=== PATIENT | female | born 1980 ===

== ENCOUNTER 2023-05-30 14:40 | Outpatient (AMB) | payer OTHER, SELFPAY ==
--- NOTE | 2023-05-30 14:55 | AM.OFFWIN_ITS ---
Intake Vital Signs 05/30/23 14:56 Height 5 ft 3 in Weight 181 lb BMI 32.1 BP 118/76 Blood Pressure Location Lt brachial Position Sitting Pulse 80 Pulse Source Pulse Oximeter Temp 98.2 F Temp Source Oral Pulse Oximetry (%) 99 Intake Visit Reasons: Pain back of head/down neck left side(Lobby) Intake Note: pt is here for c/p pain in back of head and goes down neck for 2 months Patient Tobacco Use Status: Never used Tobacco Accompanied by: Spouse Allergies pencilin Allergy (Mild, Uncoded 05/30/23 14:58) Rash Do you need a note to return to daycare/school/sports/work: Yes HPI HPI Comments History of Present Illness Details 42 y/o female patient who presents to [facility] with c/o headaches located in Occipital region. Reports that symptoms started 3 months ago. Denies vision changes. Denies Dizziness, nausea or vomiting. PFSH Social History Patient Tobacco Use Status: Never used Tobacco Review of Systems Const All systems reviewed & are unremarkable except as noted in HPI and below Physical Exam Vital Signs: Last Vital Signs Temp 98.2 F 05/30/23 14:56 Pulse 80 05/30/23 14:56 BP 118/76 05/30/23 14:56 Pulse Ox 99 05/30/23 14:56 BMI result Body Mass Index 32.1 Const General: no acute distress; No comfortable Nutritional Appearance: overweight Orientation/consciousness: patient oriented x3 HEENT Head: Yes normal to inspection, Yes normocephalic, No Miranda's sign and Yes scalp tenderness (Occipital region) Ears: external ears normal and TM's normal bilaterally Face and sinus: Yes normal facial exam Eyes Pupils: Equal, round and reactive pupils present EOM: EOMs intact bilaterally Neuro General: patient oriented x3, gait normal and moves all extremities Cranial nerves: Yes Equal, round and reactive pupils present Psych Speech and movement: Normal speech and movement present Assessment & Plan Assessment & Plan (1) Arthralgia, cervical spine: Code(s): M54.2 - Cervicalgia Plan: - IceHot - Take medications as prescribed. - Rest in Dark quite room - Pt to Report N/V or blurry vision. Medications: New acetaminophen 1,000 mg (2 x 500 mg) PO Q6H PRN 30 caps 0RF pain (scale score 7- 10) M54.2 - Cervicalgia methocarbamol 750 mg PO Q8H 20 tabs 0RF Muscle Spasm M54.2 - Cervicalgia ibuprofen 600 mg PO Q6H PRN 20 tabs 0RF pain M54.2 - Cervicalgia Coding Level of Care Code New Pt Level 3 (76141) Diagnoses Arthralgia, cervical spine M54.2 Time Spent (min) 15
[2023-05-30 14:56] VITALS: BP 118/76; PULSE 80; TEMP 36.8; O2SAT 99; BMI 32.1
== END 2023-05-30 15:57 | disposition home or self-care (01) ==
PROVIDERS: PCP Internal Medicine; Visit Provider Nurse Practitioner Family
DX: M54.2 Cervicalgia (principal)
CPT/HCPCS: 99203

== ENCOUNTER 2024-01-21 09:57 | Outpatient (AMB) | payer OTHER, SELFPAY ==
[2024-01-21 10:54] VITALS: BP 110/80; PULSE 88; O2SAT 99; BMI 33.5
--- NOTE | 2024-01-21 10:54 | A.OFFPC_ITS ---
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 Intake Note: Pt is here today as a New Patient to est care/ Hx of asthma and request inhaler Allergies pencilin Allergy (Mild, Uncoded 01/21/24 11:19) Rash Medication List - Last Reconciled 01/21/24 by Rosa Elena Tovar MD acetaminophen 1,000 mg (2 x 500 mg) PO Q6H PRN fluticasone propionate 250 mcg/actuation 1 inh inhalation BID ibuprofen 600 mg PO Q6H PRN Tobacco use date assessed: 01/21/24 Dental Screening Dental Screen Date: 01/21/24 Did you have a dental visit in the last 12 months?: No Did you have a dental problem in the last 6 months where you did not have access to dental care?: No Was dental information given to patient?: Patient has dentist 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 - She has Bronchial asthma, was initia lly managed with an inhaler for two years, which she found helpful despite its expiration. Against episodes of bronchospasm with exertion and exposure to certain smells, cold air, and intense exertion. - The patient was previously diagnosed w ith uterine fibroid and low libido, for which she was seen at the [facility]. Denies any abdominal pain cramping irregular menstrual cycles - found to have a mass in left breast on ultrasound, also seen on mammogram done in at [facility]. Has been advised to have biopsy of lesion but patient declined. Patient however agreeable to get a repeat ultrasound done 6 months, already scheduled for April 2024 at [facility] by her OBGYN [facility] Medical History (Updated 01/27/24 @ 19:23 by Rosa Elena Tovar MD) Uterine fibroid Abnormal finding on breast imaging Hereditary hemorrhagic telangiectasia Vaccine refused by patient Mild intermittent asthma Surgical History (Updated 01/27/24 @ 19:06 by Rosa Elena Tovar MD) History of tubal ligation Family History (Updated 01/27/24 @ 19:09 by Rosa Elena Tovar MD) Mother HTN (hypertension) Skin cancer Father HTN (hypertension) Diabetes mellitus Brother Testicular cancer Social History Housing: House Patient Tobacco Use Status: Never used Tobacco e-Cigarette/Vaping Use: Never Used service: No Current occupational status: employed Cognitive needs: No Hearing needs: No Vision needs: No Female Reproductive History Menstrual Total pregnancies: 2 Date of Mammogram: 11/01/23 (Done at showed negative finding in right breast, 1.5 cm oval mass upper outer posterior aspect of left breast) Questionnaire Thrive Questionnaire Date Thrive assessed: 01/21/24 I am a: Patient What is your living situation today?: I have a steady place to live Within the past 12 months, did the food you bought not last and you didn't have the money to get more?: I choose not to answer this question Within the past 12 months, did you worry whether your food would run out before you got money to buy more?: I choose not to answer this question Do you have trouble paying for medicines?: No Do you have trouble getting transportation to medical appointments?: No Do you have trouble paying your heating and electricity bill?: No Do you have trouble taking care of your child, family member or friend?: No Do you have trouble with day-to-day activities such as bathing, preparing meals, shopping, managing finances, etc.?: No Are you currently unemployed and looking for a job?: I choose not to answer this question Are you interested in more education?: I choose not to answer this question Please select the resources that you would like help with: None Currently or been in a relationship where the following occur: I choose not to answer THRIVE Score: 0 AUDIT C Alcohol Use Questionnaire (AUDIT-C) 1. How often do you have a drink containing alcohol?: Never Total Score: 0 NINA-7 AMB Questionnaire NINA-7 Date NINA - 7 assessed: 01/21/24 Feeling nervous, anxious, or on edge: 0 = Not at all Not being able to stop or control worryin = Not at all Worrying too much about different things: 0 = Not at all Trouble relaxin = Not at all Being so restless that it is hard to sit still: 0 = Not at all Becoming easily annoyed or irritable: 3 = Nearly every day Feeling afraid as if something awful might happen: 0 = Not at all Total NINA-7 score (0-4 normal; 5-9 mild; 10-14 moderate; 15-21 severe): 3 Source: Developed by Drs. Amanuel Flynn, Nathaly Reyna, Johnnie Nielsen and colleagues, with an educational nathan from [employer]. Review of Systems Const Denies body aches, Denies fatigue, Denies fever(s) and Denies headache(s) Eyes Denies change in vision ENT Denies dizziness, Denies headache(s), Denies nasal congestion, Denies nasal discharge and Denies sore throat Card Denies chest pain, Denies lightheadedness and Denies palpitations Resp Details: As per HPI GI Denies abdominal pain, Denies change in bowel habits and Denies heartburn Denies hematuria, Denies urinary frequency, Denies nipple discharge, Denies dysuria and Denies urinary urgency Skin/Breast Denies breast swelling, Denies breast skin changes, Denies breast pain, Denies breast mass, Denies lesions, Denies nipple discharge and Denies rash Neuro Denies dizziness and Denies headache(s) Endo Denies fatigue, Denies polydipsia, Denies polyuria and Denies palpitations Liam/Lymph Denies easy bruising Aller/Immun Denies seasonal rhinorrhea Physical exam (Primary Care) Vital Signs: Last Vital Signs Pulse 88 01/21/24 10:54 BP 110/80 01/21/24 10:54 Pulse Ox 99 01/21/24 10:54 Oxygen Delivery Method Room Air 01/21/24 10:54 BMI result Body Mass Index 33.5 Tobacco/Smoking Status: Tobacco use Status Tobacco use date assessed 01/21/24 01/21/24 10:58 Patient Tobacco Use Status Never used Tobacco 01/21/24 10:54 e-Cigarette/Vaping Use Never Used 01/21/24 10:58 Thrive Assessment: Date of Thrive Assessment Date Thrive assessed 01/21/24 01/21/24 10:58 Currently or been in a relationship where the following occur: I choose not to a nswer Const General: comfortable, no acute distress and alert Orientation/consciousness: patient oriented x3 HENMT Ears: external ears normal, TM's normal bilaterally and EAC's normal General nose exam: Normal external nose present and No nasal discharge present Mouth: Normal oral and palatal mucosa present, oropharynx normal and moist mucous membranes Eyes General: appearance normal, both eyes and all related structures Conjunctivae: conjunctivae normal Sclerae: sclerae normal Pupils: Equal, round and reactive pupils present EOM: EOMs intact bilaterally Neck Neck: Yes full ROM, Yes no lymphadenopathy and Yes supple Resp Effort & Inspection: normal respiratory effort and able to speak in complete sentences Auscultation: clear to auscultation bilaterally Cardio Rate: regular rate Rhythm: regular rhythm Heart sounds: S1 normal heart sound present and S2 normal heart sound present GI Palpation (GI): Soft to palpation, nontender and no masses Auscultation: normal bowel sounds Back/Spine/Pelvis Back: No back tenderness Skin General skin exam: no rashes or lesions noted Neuro General: patient oriented x3, gait normal, tone normal, moves all extremities, Normal light touch and pain sensation and no focal motor deficits Cranial nerves: Yes CN's II-XII intact bilaterally and Yes Equal, round and reactive pupils present Cognition (Neuro): normal cognition Extrem General: Yes full ROM, Yes no joint enlargement, Yes no clubbing, cyanosis or edema and Yes no calf tenderness Psych Appearance: grossly normal and well kempt Mental Status: mental status grossly normal Speech and movement: Normal speech and movement present Affect: normal affect Attitude: cooperative Thought process: Normal thought process present Thought content: Normal thought content present, suicidality and no homicidality Coding Level of Care Code New Pt Level 4 (88646) Diagnoses Mild intermittent asthma without complication J45.20 Asthma complication type: uncomplicated Vaccine refused by patient Z28.20 Mass of left breast on mammogram N63.20 Low libido R68.82 Assessment & Plan Assessment & Plan (1) Mild intermittent asthma: Code(s): J45.20 - Mild intermittent asthma, uncomplicated Category: Medical Qualifiers: Asthma complication type: uncomplicated Qualified Code(s): J45.20 - Mild intermittent asthma, uncomplicated Plan: Prescription sent for fluticasone propionate-salmeterol 113-14 mcg per actuation, 1 inhalation every 12 hours. Advised to rinse mouth after use, patient instructed on proper use of inhaler. Continue use of albuterol inhaler 2 puffs every 6 hours as needed for episodes of wheezing and bronchospasm. Recommended to get flu vaccine and pneumococcal vaccine but patient refused (2) Vaccine refused by patient: Code(s): Z28.20 - Immunization not carried out because of patient decision for unspecified reason Category: Medical Plan: Patient does not want to get any vaccinations (3) Mass of left breast on mammogram: Code(s): N63.20 - Unspecified lump in the left breast, unspecified quadrant Plan: Currently being followed at [facility], declining biopsy of left breast mass, but agrees to have a repeat follow-up ultrasound done, already scheduled at [facility] in 04/2024 (4) Low libido: Comment: Currently being seen at [facility] by Jenae Brooke , last seen 11 02/01/2024 Code(s): R68.82 - Decreased libido Category: Medical Plan: Followed at [facility] Medications: New fluticasone propion-salmeterol 113-14 mcg/actuation 1 inh inhalation Q12H 1 ea 5RF J45.20 - Mild intermittent asthma, uncomplicated albuterol sulfate 90 mcg/actuation 2 puffs inhalation Q6H PRN 8.5 grams 3RF shortness of breath or wheezing J45.20 - Mild intermittent asthma, uncomplicated
== END 2024-01-21 11:44 | disposition home or self-care (01) ==
PROVIDERS: PCP Internal Medicine; Visit Provider Internal Medicine
DX: J45.20 Mild intermittent asthma, uncomplicated (principal); Z28.20 Immunization not carried out because of patient decision for unspecified reason; N63.20 Unspecified lump in the left breast, unspecified quadrant; R68.82 Decreased libido

== ENCOUNTER → 2024-01-21 09:57 | Outpatient (BNVA) | payer OTHER, SELFPAY | PROVIDERS: PCP Internal Medicine; Visit Provider Internal Medicine | DX: J45.20 Mild intermittent asthma, uncomplicated (principal); N63.20 Unspecified lump in the left breast, unspecified quadrant | CPT/HCPCS: 96127; 99202 ==

== ENCOUNTER 2024-10-07 11:57 | Outpatient (AMB) | payer OTHER, SELFPAY ==
[2024-10-07 12:08] VITALS: BP 102/62; PULSE 83; RESP 16; TEMP 37.4; O2SAT 98; BMI 31.7
--- NOTE | 2024-10-07 12:08 | MHC.PC.OV ---
Vital Signs 10/07/24 12:08 Height 5 ft 3 in Weight 179 lb BMI 31.7 BP 102/62 Blood Pressure Location Rt brachial Position Sitting Respiration 16 Pulse 83 Pulse Source Pulse Oximeter Temp 99.3 F Temp Source Oral Pulse Oximetry (%) 98 Oxygen Delivery Method Room Air Intake Visit Reasons: PE Intake Note: Pt is here today for her PE House Detective Required: Yes House Detective Name: Murphy ID #[id number] Is last menstrual period known: Yes Last menstrual period: 09/15/24 Allergies pencilin Allergy (Mild, Uncoded 10/07/24 12:20) Rash Medication List - Last Reconciled 10/07/24 by Rosa Elena Tovar MD Advair HFA 115-21 mcg/actuation (fluticasone propion-salmeterol) 2 puffs inhalation Q12H NS albuterol sulfate 90 mcg/actuation 2 puffs inhalation Q6H PRN ibuprofen 600 mg PO Q6H PRN [magnesium PO] [selenium PO] [vitamin d3 PO] [vitamin e PO] [zinc PO] Tobacco use date assessed: 10/07/24 Dental Screening Dental Screen Date: 10/07/24 Did you have a dental visit in the last 12 months?: No Did you have a dental problem in the last 6 months where you did not have access to dental care?: No Was dental information given to patient?: Patient has dentist HPI PE HPI Details 43-year-old lady here today for physical exam. She has mild intermittent asthma, uses Advair and albuterol as needed for episodes of bronchospasm and wheezing, which she rarely uses. She goes to [facility] for her routine Pap and pelvic exam, diagnosed to have uterine fibroids on ultrasound done last year at [facility]. Has regular menstrual cycle, with last menstrual period 09/12/2024, periods usually last 2-3 days with no heavy menstrual bleeding, and no menstrual cramps Up-to-date with her screening mammogram done at [facility] 11/01/2023 which showed no mammographic or sonographic evidence of malignancy in right breast but there is a mildly suspicious mass in the at 2 o'clock position left breast, for which ultrasound was done on 05/09/2023, which showed lobulated soft mass at 02:00 position in her left breast , and recommended to have an ultrasound-guided core needle biopsy. Patient states that she was already informed with the finding by her OBGYN but does not want to get ultrasound-guided biopsy done ordered to get any further testing. As mild intermittent asthma currently on Advair inhalation taken twice a day, rarely needing to use her albuterol inhaler. Patient does not want to get any vaccines. Patient she states that she has been feeling well, with no complaints at present time [facility] Medical History (Updated 10/07/24 @ 12:58 by Rosa Elena Tovar MD) Mass of left breast on mammogram Uterine fibroid Abnormal finding on breast imaging Hereditary hemorrhagic telangiectasia Vaccine refused by patient Mild intermittent asthma Surgical History (Updated 01/27/24 @ 19:06 by Rosa Elena Tovar MD) History of tubal ligation Family History (Updated 01/27/24 @ 19:09 by Rosa Elena Tovar MD) Mother HTN (hypertension) Skin cancer Father HTN (hypertension) Diabetes mellitus Brother Testicular cancer Social History Housing: House Patient Tobacco Use Status: Never used Tobacco e-Cigarette/Vaping Use: Never Used service: No Current occupational status: employed Cognitive needs: No Hearing needs: No Vision needs: No Female Reproductive History Menstrual Duration of menses: <3 days Date of last menstrual period: 09/15/24 control method: none Questionnaire PHQ-9 Over the last 2 weeks, how often have you been bothered by any of the following problems? 1. Little interest or pleasure in doing things: not at all 2. Feeling down, depressed, or hopeless: not at all 3. Trouble falling or staying asleep, or sleeping too much: not at all 4. Feeling tired or having little energy: several days 5. Poor appetite or overeating: not at all 6. Feeling bad about yourself - or that you are a failure or have let yourself or your family down: not at all 7. Trouble concentrating on things, such as reading the newspaper or watching television: not at all 8. Moving or speaking so slowly that other people could have noticed. Or the opposite - being so fidgety or restless that you have been moving around a lot more than usual: not at all 9. Thoughts that you would be better off or of hurting yourself in some way: not at all Total score: 1 Depression Screening Interpretation: Negative Depression Screening Done: Yes 35707 - PHQ-9 Billing: Yes Source: Developed by Drs. Amanuel Flynn, Nathaly Reyna, Johnnie Nielsen and colleagues, with an educational nathan from [employer]. Thrive Questionnaire Date Thrive assessed: 10/07/24 I am a: Patient What is your living situation today?: I have a steady place to live Within the past 12 months, did the food you bought not last and you didn't have the money to get more?: I choose not to answer this question Within the past 12 months, did you worry whether your food would run out before you got money to buy more?: I choose not to answer this question Do you have trouble paying for medicines?: I choose not to answer this question Do you have trouble getting transportation to medical appointments?: I choose not to answer this question Do you have trouble paying your heating and electricity bill?: I choose not to answer this question Do you have trouble taking care of your child, family member or friend?: I choose not to answer this question Do you have trouble with day-to-day activities such as bathing, preparing meals, shopping, managing finances, etc.?: I choose not to answer this question Are you currently unemployed and looking for a job?: I choose not to answer this question Are you interested in more education?: I choose not to answer this question Please select the resources that you would like help with: None Currently or been in a relationship where the following occur: I choose not to answer THRIVE Score: 0 AUDIT C Alcohol Use Questionnaire (AUDIT-C) 1. How often do you have a drink containing alcohol?: Never Total Score: 0 Score Reviewed/Action Taken: Yes NINA-7 AMB Questionnaire NINA-7 Date NINA - 7 assessed: 10/07/24 Feeling nervous, anxious, or on edge: 0 = Not at all Not being able to stop or control worryin = Not at all Worrying too much about different things: 0 = Not at all Trouble relaxin = Not at all Being so restless that it is hard to sit still: 0 = Not at all Becoming easily annoyed or irritable: 0 = Not at all Feeling afraid as if something awful might happen: 0 = Not at all Total NINA-7 score (0-4 normal; 5-9 mild; 10-14 moderate; 15-21 severe): 0 Source: Developed by Drs. Amanuel Flynn, Nathaly Reyna, Johnnie Nielsen and colleagues, with an educational nathan from [employer]. NINA-7 Assessment Billing NINA-7 Assessment Tool: NINA-7 Assessment 36937 Review of Systems Const Denies body aches, Denies fatigue, Denies fever(s) and Denies headache(s) Eyes Details: Has appointment to see [facility] January 2025 for her routine eye exam Denies change in vision ENT Denies dizziness, Denies headache(s), Denies nasal congestion, Denies nasal discharge and Denies sore throat Card Denies chest pain, Denies lightheadedness and Denies palpitations Resp Reports no additional complaints GI Denies abdominal pain, Denies change in bowel habits and Denies heartburn Denies abnormal menses, Denies hematuria, Denies urinary frequency, Denies nipple discharge, Denies dysuria and Denies urinary urgency Musc Reports no additional complaints Skin/Breast Denies breast swelling, Denies breast skin changes, Denies breast pain, Denies breast mass, Denies lesions, Denies nipple discharge and Denies rash Neuro Denies dizziness and Denies headache(s) Psych Reports no additional complaints Endo Denies fatigue, Denies polydipsia, Denies polyuria and Denies palpitations Liam/Lymph Denies easy bleeding and Denies easy bruising Aller/Immun Denies seasonal rhinorrhea Physical exam (Primary Care) Vital Signs: Last Vital Signs Temp 99.3 F 10/07/24 12:08 Pulse 83 10/07/24 12:08 Resp 16 10/07/24 12:08 BP 102/62 10/07/24 12:08 Pulse Ox 98 10/07/24 12:08 Oxygen Delivery Method Room Air 10/07/24 12:08 BMI result Body Mass Index 31.7 Tobacco/Smoking Status: Tobacco use Status Tobacco use date assessed 10/07/24 10/07/24 12:15 Patient Tobacco Use Status Never used Tobacco 10/07/24 12:15 e-Cigarette/Vaping Use Never Used 10/07/24 12:15 PHQ-9: PHQ-9 Score PHQ-9: Total score 1 10/07/24 12:23 Depression Screening Interpretation: Negative Thrive Assessment: Date of Thrive Assessment Date Thrive assessed 10/07/24 10/07/24 12:15 Currently or been in a relationship where the following occur: I choose not to answer Advance Care Planning discussion: Completed/Scanned Date of discussion: 10/07/24 Who was present: Patient Forms completed: Health Care Proxy Time spent: 16-45 minutes Actual minutes spent: 2 Const General: no acute distress and alert Orientation/consciousness: patient oriented x3 HENMT Ears: external ears normal, TM's normal bilaterally and EAC's normal General nose exam: Normal external nose present and No nasal discharge present Mouth: Normal oral and palatal mucosa present, oropharynx normal and moist mucous membranes Eyes General: appearance normal, both eyes and all related structures Conjunctivae: conjunctivae normal Sclerae: sclerae normal Pupils: Equal, round and reactive pupils present EOM: EOMs intact bilaterally Neck Neck: Yes full ROM, Yes no lymphadenopathy and Yes supple Resp Effort & Inspection: normal respiratory effort and able to speak in complete sentences Auscultation: clear to auscultation bilaterally Cardio Rate: regular rate Rhythm: regular rhythm Heart sounds: S1 normal heart sound present and S2 normal heart sound present GI Palpation (GI): Soft to palpation, nontender and no masses Auscultation: normal bowel sounds General: Yes deferred (Goes to [facility] with referred, up-to-date with her cervical cancer screeni) Back/Spine/Pelvis Back: No back tenderness Skin General skin exam: no rashes or lesions noted Neuro General: patient oriented x3, gait normal, tone normal, moves all extremities, Normal light touch and pain sensation and no focal motor deficits Cranial nerves: Yes Equal, round and reactive pupils present Cognition (Neuro): normal cognition Extrem General: Yes full ROM, Yes no joint enlargement, Yes no clubbing, cyanosis or edema and Yes no calf tenderness Psych Appearance: grossly normal and well kempt Mental Status: mental status grossly normal Speech and movement: Normal speech and movement present Affect: normal affect Coding Level of Care Code Est Pt Prev Care 40-64y(38410) Diagnoses Annual visit for general adult medical examination with abnormal findings Z00.01 Mild intermittent asthma without complication J45.20 Asthma complication type: uncomplicated Vaccine refused by patient Z28.20 Hereditary hemorrhagic telangiectasia I78.0 Uterine fibroid D25.9 Advance directive discussed with patient Z71.89 Mass of left breast on mammogram N63.20 Additional Codes NINA-7 Assessment Billing - NINA-7 Assessment Tool: NINA-7 Assessment 53914 ([id number]) PHQ-9 - 40790 - PHQ-9 Billing: Yes ([id number]) Vital Signs *Quality* - Advance Care Planning discussion: Completed/Scanned ([id number]) Vital Signs *Quality* - Time spent: 16-45 minutes ([id number]) Assessment & Plan Assessment & Plan (1) Annual visit for general adult medical examination with abnormal findings: Code(s): Z00.01 - Encounter for general adult medical examination with abnormal findings Plan: Will check appropriate labs. Up-to-date with her dental prophylaxis every 6 months and regular eye exams, at least every 2 years has an appointment already scheduled with [facility] in January 2025. Take adequate calcium in diet and vitamin-D 3 at 2000 IU per cap once a day, in addition to weight-bearing exercises to help maintain good muscle tone and weight control. Up-to-date with her mammogram, done last year which showed presence of mildly suspicious mass at 2 o'clock position left breast, breast ultrasound was done April 2024 which showed solid lobulated mass at 2 o'clock position left breast with recommendation to do ultrasound-guided core needle biopsy, but patient refusing to have procedure or further testing . Up-to-date with her cervical cancer screening, done at [facility] with referral, with Pap smear done 10/17/2023 showing negative findings. Patient declines getting any vaccines (2) Mild intermittent asthma: Code(s): J45.20 - Mild intermittent asthma, uncomplicated Category: Medical Qualifiers: Asthma complication type: uncomplicated Qualified Code(s): J45.20 - Mild intermittent asthma, uncomplicated Plan: Asthma symptoms stable and controlled on Advair, rarely needing to use her albuterol inhaler (3) Vaccine refused by patient: Code(s): Z28.20 - Immunization not carried out because of patient decision for unspecified reason Category: Medical Plan: Patient does not want to get any vaccines (4) Hereditary hemorrhagic telangiectasia: Comment: Diagnosed 10/31/2007 Code(s): I78.0 - Hereditary hemorrhagic telangiectasia Category: Medical Plan: Denies any abnormal bleeding or bruising (5) Uterine fibroid: Comment: 11/09/2023 compared with 11/15/2017 transabdominal/transvaginal pelvic ultrasound, which showed 2.6 cm uterine fibroid posteriorly with normal uterus and endometrium, normal ovaries Code(s): D25.9 - Leiomyoma of uterus, unspecified Category: Medical Plan: Denies any abnormal menstrual bleeding, has regular periods lasting 3 days with no accompanying abdominal cramping. Patient already being followed by OBGYN at [facility] (6) Advance directive discussed with patient: Code(s): Z71.89 - Other specified counseling Plan: Initiated the conversation about Advanced Directives. Advanced Directives help patients prepare for current and future decisions about their medical treatment and place of care. Discussed with patient that it is a process where a patients current condition and prognosis are reviewed, their wishes for information regarding their illness are elicited, and likely medical dilemmas are presented and options discussed. Healthcare proxy form completed today. The form can be amended as needed, reviewed yearly and make changes as needed (7) Mass of left breast on mammogram: Comment: Already notified by her OBGYN about report or further mammogram and breast ultrasound but patient does not want to get ultrasound-guided core biopsy of left breast, refuses further testing Code(s): N63.20 - Unspecified lump in the left breast, unspecified quadrant Category: Medical Plan: Already notified by her OBGYN about report or further mammogram and breast ultrasound but patient does not want to get ultrasound-guided core biopsy of left breast, refuses further testing Orders: Orders Glucose Fasting Today D25.9 - Leiomyoma of uterus, unspecified, I78.0 - Hereditary hemorrhagic telangiectasia, J45.20 - Mild intermittent asthma, uncomplicated, Z00.01 - Encounter for general adult medical examination with abnormal findings, Z13.1 - Encounter for screening for diabetes mellitus, Z13.220 - Encounter for screening for lipoid disorders, Z28.20 - Immunization not carried out because of patient decision for unspecified reason, Z71.89 - Other specified counseling Vitamin D 25-OH Total Today D25.9 - Leiomyoma of uterus, unspecified, I78.0 - Hereditary hemorrhagic telangiectasia, J45.20 - Mild intermittent asthma, uncomplicated, Z00.01 - Encounter for general adult medical examination with abnormal findings, Z13.1 - Encounter for screening for diabetes mellitus, Z13.220 - Encounter for screening for lipoid disorders, Z28.20 - Immunization not carried out because of patient decision for unspecified reason, Z71.89 - Other specified counseling Lipid Panel Today I78.0 - Hereditary hemorrhagic telangiectasia, Z00.01 - Encounter for general adult medical examination with abnormal findings, Z13.1 - Encounter for screening for diabetes mellitus, Z13.220 - Encounter for screening for lipoid disorders Complete Blood Count Auto Diff Today D25.9 - Leiomyoma of uterus, unspecified, I78.0 - Hereditary hemorrhagic telangiectasia, J45.20 - Mild intermittent asthma, uncomplicated, Z00.01 - Encounter for general adult medical examination with abnormal findings, Z13.1 - Encounter for screening for diabetes mellitus, Z13.220 - Encounter for screening for lipoid disorders, Z28.20 - Immunization not carried out because of patient decision for unspecified reason, Z71.89 - Other specified counseling
== END 2024-10-07 14:26 | disposition home or self-care (01) ==
LOC: HO.HMCC 11:58
PROVIDERS: PCP Internal Medicine; Visit Provider Internal Medicine
DX: Z00.01 Encounter for general adult medical examination with abnormal findings (principal); J45.20 Mild intermittent asthma, uncomplicated; Z28.20 Immunization not carried out because of patient decision for unspecified reason; I78.0 Hereditary hemorrhagic telangiectasia; D25.9 Leiomyoma of uterus, unspecified; Z71.89 Other specified counseling; N63.20 Unspecified lump in the left breast, unspecified quadrant; Z00.00 Encounter for general adult medical examination without abnormal findings

== ENCOUNTER 2024-10-07 11:57 | Outpatient (REF) | payer OTHER, SELFPAY ==
[2024-10-07 16:15] LABS: MANUAL DIFF FLAG NO
[2024-10-07 16:26] LABS: Hematocrit 39.2 % (37.0-47.0); Hemoglobin 12.9 g/dl (12.0-16.0); Imm Gran Abs Auto 0.02 X10*3/uL (0.00-0.03); Imm Gran Pct Auto 0.3 % (0.0-0.4); Lymphocytes Absolute Auto 1.4 X10*3/uL (1.2-4.9); Mean Corpuscular HGB Conc 32.9 g/dl (31.0-35.0); Mean Corpuscular Hemoglobin 29.7 pg (27.0-33.0); Mean Corpuscular Volume 90.1 fL (80.0-98.0); NRBC Abs Auto 0.000 X10*3/uL (0.0-0.012); NRBC Pct Auto 0.0 /100WBC (0.0-0.2); Platelet Count 256 X10*3/uL (160-400); Red Blood Count 4.35 X10*6/uL (4.20-5.50); White Blood Count 7.0 X10*3/uL (4.8-10.8)
[2024-10-07 16:41] LABS: Cholesterol 162 mg/dL (<200); HDL Cholesterol 43 mg/dL (>40); Triglycerides 73 mg/dL (<150)
== END 2024-10-07 11:58 | disposition home or self-care (01) ==
LOC: HO.HMGCLDS 11:57
PROVIDERS: PCP Internal Medicine; Visit Provider Internal Medicine
DX: Z13.220 Encounter for screening for lipoid disorders (principal); Z13.1 Encounter for screening for diabetes mellitus; Z00.01 Encounter for general adult medical examination with abnormal findings; Z71.89 Other specified counseling; Z28.20 Immunization not carried out because of patient decision for unspecified reason; D25.9 Leiomyoma of uterus, unspecified; I78.0 Hereditary hemorrhagic telangiectasia; J45.20 Mild intermittent asthma, uncomplicated; N63.20 Unspecified lump in the left breast, unspecified quadrant
CPT/HCPCS: 36415; 80061; 82306; 82947; 85025; 96127; 99396; 99497